=== PATIENT | male | born 2000 | race Caucasian/White ===

== ENCOUNTER 2024-11-26 19:05 | Emergency (ER) | payer OTHER ==
[~2024-11-26] VITALS: Ht 167.6 cm; Wt 56.7 kg
[2024-11-27] MEDS ORDERED: Morphine Sulfate 4 MG/1 ML Injection IV ONE (01:40)
[2024-11-27] MEDS ORDERED: Ondansetron HCl 2 MG / ML 2ML Vial IV ONE (01:40)
[2024-11-27 03:15] LABS: BASOPHILS ABSOLUTE AUTO 0.03 K/mm3 (0.00-0.23); BASOPHILS PERCENT AUTO 0 % (0-2); EOSINOPHILS ABSOLUTE AUTO 0.01 K/mm3 (0.00-0.68); EOSINOPHILS PERCENT AUTO 0 % (0-6); Hematocrit 46.9 % (37.0-53.0); Hemoglobin 17.2 g/dL (13.5-17.5); IMMATURE GRAN ABSOLUTE AUTO 0.05 K/mm3 (0.00-0.10); IMMATURE GRAN PERCENT AUTO 0 % (0-1); LYMPHOCYTES ABSOLUTE AUTO 1.24 K/mm3 (0.84-5.20); LYMPHOCYTES PERCENT AUTO 8 % (21-46); MONOCYTES ABSOLUTE AUTO 1.84 K/mm3 (0.16-1.47); MONOCYTES PERCENT AUTO 12 % (4-13); Mean Corpuscular HGB 31.1 pg (26.0-34.0); Mean Corpuscular HGB Conc 36.7 g/dL (31.5-36.5); Mean Corpuscular Volume 85 fL (80-100); Mean Platelet Volume 9.4 fL (9.1-12.4); NEUTROPHILS ABSOLUTE AUTO 12.35 K/mm3 (1.96-9.15); NEUTROPHILS PERCENT AUTO 80 % (41-73); Platelet Count 230 K/mm3 (150-400); RDW Coefficient Variation 11.5 % (11.7-14.2); RDW Standard Deviation 35.3 fL (35.1-46.3); Red Blood Cell Count 5.53 M/mm3 (4.30-5.90); White Blood Cell Count 15.52 K/mm3 (4.00-11.30)
[2024-11-27 03:41] LABS: Albumin, Blood 4.3 g/dL (3.4-5.0); Albumin/Globulin Ratio 1.2 (0.8-1.8); Bun/Creatinine Ratio 11.1 (12.0-20.0); Calcium, Blood 9.2 mg/dL (8.5-10.1); Globulin, Blood 3.7 g/dL (2.2-4.0); Potassium, Blood 4.2 mmol/L (3.5-5.5)
== END 2024-11-27 04:34 | disposition left against medical advice (07) ==
LOC: ER 19:05
PROVIDERS: Student in an Organized Health Care Education/Training Program
DX: S40.011A Contusion of right shoulder, initial encounter (principal); S20.211A Contusion of right front wall of thorax, initial encounter; T23.232A Burn of second degree of multiple left fingers (nail), not including thumb, initial encounter; Z53.29 Procedure and treatment not carried out because of patient's decision for other reasons; W19.XXXA Unspecified fall, initial encounter; X08.8XXA Exposure to other specified smoke, fire and flames, initial encounter
CPT/HCPCS: 73030; 73201; 80053; 85025; 96374; 96375; 99283-25; J2270; J2405; Q9967